=== PATIENT | male | born 1995 | race Caucasian/White ===

== ENCOUNTER 2017-10-06 12:01 | Emergency (ER) | payer OTHER ==
[~2017-10-06] VITALS: Ht 167.6 cm; Wt 68.9 kg
[2017-10-06 12:11] VITALS: BP 104/61
--- NOTE | 2017-10-06 12:30 | NUR ---
Patient ambulated to bed 6. RN evaluating patient at bedside.
--- NOTE | 2017-10-06 12:40 | NUR ---
PATIENT PRESENTS TO ED WITH RIGHT UPPER TOOTHACHE X2 DAYS; PT ALREADY ON ANTIBIOTICS AND STATES THEY ARE NOT WORKING . PATIENT STATES PAIN OF 8/10 AT THIS TIME; VSS; ER MD MADE AWARE OF PT STATUS.
--- NOTE | 2017-10-06 13:39 | NUR ---
Dr. Arciniega evaluating patient at bedside.
[2017-10-06] MEDS ORDERED: LIDOCAINE/EPI 1% 1:100000 20 ML VIAL INJ ONE (13:50)
--- NOTE | 2017-10-06 14:40 | NUR ---
PROCEDURE DONE AT BEDSIDE BY DR. AMARAL.
[2017-10-06 14:58] VITALS: BP 99/60
--- NOTE | 2017-10-06 14:58 | NUR ---
Patient discharged with v/s stable. Written and verbal after care instructions given and explained. Patient alert, oriented and verbalized understanding of instructions. Ambulatory with steady gait. All questions addressed prior to discharge. ID band removed. Patient advised to follow up with PMD. Rx of PERIDEX AND AUGMENTIN given. Patient educated on indication of medication including possible reaction and side effects. Opportunity to ask questions provided and answered.
== END 2017-10-06 14:58 | disposition home or self-care (01) ==
LOC: MED 12:01
DX: K04.7 Periapical abscess without sinus (principal)
CPT/HCPCS: 41800; 99283; J2001; 10160; 99284